=== PATIENT | female | born 1990 | race Two or more races ===

== ENCOUNTER 2025-03-13 04:08 | Emergency (ER) | payer MEDICAID, OTHER ==
[~2025-03-13] VITALS: Ht 170.2 cm; Wt 81.6 kg
[2025-03-13] MEDS: PILOCARPINE 2% OPTH DROP 15 ML BOTTLE RIGHTEYE STA (05:42)
[2025-03-13] MEDS: TIMOLOL 0.5% SOLN OPHTH 5 ML BOTTLE OP STA (05:42)
[2025-03-13] MEDS ORDERED: TIMOLOL 0.5% SOLN OPHTH 5 ML BOTTLE ONE (05:44)
[2025-03-13] MEDS ORDERED: BRIMONIDINE TARTRATE OPHT SOLN 5 ML BOTTLE ONE (05:44)
[2025-03-13] MEDS ORDERED: acetaZOLAMIDE SODIUM 500 MG/VIAL VIAL ONE (05:47)
[2025-03-13] MEDS: BRIMONIDINE TARTRATE OPHT SOLN 5 ML BOTTLE OP ONE (05:54)
[2025-03-13] MEDS: DORZOLAMIDE OPTH 2% 10 ML BOTTLE RIGHTEYE STA (05:54)
[2025-03-13] MEDS ORDERED: TIMOLOL MAL/DORZOLAM HCL OPHTH 10 ML BOTTLE RIGHTEYE SCH (06:00)
[2025-03-13] MEDS: acetaZOLAMIDE SODIUM 500 MG/VIAL VIAL IV ONE (06:00)
[2025-03-13 06:01] LABS: PLATELET COUNT (AUTO) 293 K/uL (150-450); RED BLOOD CELL COUNT(AUTO) 4.61 MIL/uL (4.0-5.2); RED CELL DISTRIBUTION WIDTH 13.8 % (11.5-15.0); WHITE BLOOD COUNT (AUTO) 12.2 K/uL (4.3-11.0)
[2025-03-13 06:15] LABS: CALCIUM, SERUM 9.3 mg/dL (8.5-10.1); CREATININE 0.7 mg/dL (0.6-1.3); SODIUM SERUM 141.0 mmol/L (136-145); UREA NITROGEN, BLOOD 10.0 mg/dL (7-18)
[2025-03-13 07:00] VITALS: BP 148/82; TEMP 98.5; O2SAT 97
== END 2025-03-13 08:59 | disposition short-term general hospital (02) ==
LOC: ER 04:09
DX: H57.11 Ocular pain, right eye (principal); H53.8 Other visual disturbances; F17.200 Nicotine dependence, unspecified, uncomplicated
CPT/HCPCS: 99285; 96374; 70480; 85025; 80048; 36415; J1120; J7050